=== PATIENT | male | born 1950 | race Caucasian/White ===

== ENCOUNTER 2017-07-24 20:31 | Emergency (ER) | payer OTHER ==
[~2017-07-24] VITALS: Ht 172.7 cm; Wt 93.0 kg
[2017-07-24 20:35] VITALS: BP 130/81
--- NOTE | 2017-07-24 21:38 | ED UPPER/LOWER EXTREMITY COMPL ---
History of Present Illness General Chief Complaint: Upper Extremity Injury Stated Complaint: FALL, RIGHT SHOULDER PAIN PER PT Source: patient Exam Limitations: no limitations Vital Signs & Intake/Output Vital Signs & Intake/Output Vital Signs Date Time Temp Pulse Resp B/P B/P Pulse O2 O2 Flow FiO2 Mean Ox Delivery Rate 07/24 2034 97.9 86 16 130/81 97 Room Air Allergies Uncoded Allergies: PCN (Intermediate, HIVES 07/24/17) Reconcile Medications Hydrocodone/Acetaminophen (Hydrocodon-Acetaminophen 5-325) 5 MG-325 MG TABLET 1-2 TAB PO Q4-6 PRN PRN pain Triage Note: PT STATES THAT HE SLIPPED ON ICE FALLING DOWN ONTO HIS R SIDE. COMPLAINS OF R UPPER ARM PAIN THAT HAS BEEN CONSTANT SINCE HE FELL AND UNABLE TO LIFT HIS ARM, DENIES PAIN IN SHOULDER ON LIGHT PALPATION Triage Nurses Notes Reviewed? yes Onset: Abrupt Duration: day(s): Timing: recent history Severity: moderate, severe Pain/Injury Location: Right: Shoulder. Method of Injury: fall No Modifying Factors: none HPI: 66-year-old male comes into the emergency room for further evaluation of right shoulder pain. Patient slipped and fell outside. Sharp throbbing pain. Difficulty with lifting his right shoulder. He comes in for further evaluation. Denies hitting his head. Denies any injury or pain anywhere else. Denies any other associated symptoms. (Taj Perez) Past History Travel History Traveled to [place] past 21 day No Medical History Any Pertinent Medical History? see below for history Neurological: NONE EENT: NONE Cardiovascular: hypertension, hyperlipidemia Respiratory: NONE Gastrointestinal: NONE Hepatic: NONE Renal: NONE Musculoskeletal: NONE Psychiatric: NONE Endocrine: diabetes Cancer(s): NONE FACTORY LAY OUT ENGINEER/Reproductive: NONE Surgical History Surgical History: non-contributory Psychosocial History What is your primary language Upper Sorbian Tobacco Use: Never used ETOH Use: denies use Illicit Drug Use: denies illicit drug use Family History Hx Contributory? No (Taj Perez) Review of Systems Review of Systems Constitutional: Reports: no symptoms. EENTM: Reports: no symptoms. Respiratory: Reports: no symptoms. Cardiovascular: Reports: no symptoms. Gastrointestinal/Abdominal: Reports: no symptoms. Genitourinary: Reports: no symptoms. Musculoskeletal: Reports: see HPI. Skin: Reports: no symptoms. Neurological/Psychological: Reports: no symptoms. Hematologic/Endocrine: Reports: no symptoms. Immunological: Reports: no symptoms. All Other Systems: Reviewed and Negative (Taj Perez) Physical Exam Physical Exam General Appearance: well developed/nourished, mild distress Head: atraumatic Eyes: Bilateral: PERRL, EOMI. Ears, Nose, Throat: normal pharynx, normal ENT inspection, hearing grossly normal Neck: normal inspection, supple Cardiovascular/Respiratory: no respiratory distress Back: normal inspection Shoulder Right: soft tissue tenderness, limited range of motion, positive empty can test Neurologic/Tendon: normal sensation, normal motor functions, normal tendon functions, no evidence tendon injury Skin: intact, normal color, warm/dry Lymphatic: no anterior cervical cash (Taj Perez) Progress Differential Diagnosis: contusion, dislocation, fracture, sprain, tendon injury Plan of Care: Orders Procedure Date/time Status XRY-SHOULDER COMPLETE-RIGHT 07/24 2041 Active XRY-HUMERUS, RIGHT 07/24 2041 Active Diagnostic Imaging: Viewed by Me: Radiology Read. Discussed w/RAD: Radiology Read. Radiology Impression: PATIENT: NICOLLE MOONEY PRESENT AGE: 66 PATIENT ACCOUNT NO: [id number] : 51 LOCATION: [facility] ORDERING PHYSICIAN: Gm Zuniga DO SERVICE DATE: 07/24/17 EXAM TYPE: RAD - XRY-HUMERUS, RIGHT; XRY-SHOULDER COMPLETE-RIGHT EXAMINATION: XR SHOULDER, RIGHT XR HUMERUS, RIGHT CLINICAL INFORMATION: Right shoulder and humerus pain. Fall. COMPARISON: None TECHNIQUE: 3 views of the right shoulder. 2 views, 4 images of the right humerus. FINDINGS: Right shoulder: No acute fracture or dislocation. The humeral head articulates appropriately with the glenoid. The acromioclavicular joint is intact with mild degenerative changes. The visualized lung is clear. Right humerus: No fracture or cortical disruption. Anatomic alignment at the elbow. Enthesophyte formation at the olecranon which is fragmented. No elbow joint effusion. IMPRESSION: No acute fracture or malalignment. Mild degenerative changes. DICTATED BY: Ki WEIR,Salomón DATE /TIME DICTATED:07/24/172130 SHADOWGRAPH SCALE OPERATOR:[email or web address] DATE/TIME TRANSCRIBED: 07/24/172130 CONFIDENTIAL, DO NOT COPY WITHOUT APPROPRIATE AUTHORIZATION. < Electronically signed in Other Vendor System> SIGNED BY: Ki WEIR, Salomón 07/24/17 5435 (Taj Perez) Departure Departure Disposition: HOME OR SELF CARE Condition: Stable Clinical Impression Primary Impression: Injury of right rotator cuff Referrals: Juan WEIR,Colton Coelho MD,Ilsa (PCP/Family) Additional Instructions: Take ibuprofen for pain. Rest. Ice. Follow-up with orthopedic doctor provided. Return if any other concerns worsening symptoms. Please go over all results of today's visit with your primary care doctor. Contact your primary care doctor to let them know you were here in the emergency room. There may be nonspecific findings which may not be related to your visit today here in the emergency room but may require further evaluation and chronic monitoring by your primary care doctor. If you had a laceration today the chance of foreign body always remains. You should follow-up with your primary care doctor for recheck in 3-5 days for a wound check. If you had an x-ray done there is a chance that a fracture could have been missed on initial read and you should follow-up with your primary care doctor for repeat x-rays if symptoms persist. If your blood pressure was elevated here in the emergency room please have rechecked by [facility] primary care doctor within the next 48. If you were prescribed a narcotic here in the emergency room or any type of controlled substances you're not allowed to drive while taking this medication or operate any type of heavy machinery. Narcotics can make you feel lightheaded dizziness nausea and can cause constipation. You may need to pick up man a stool softener. Thank you for choosing [facility] emergency room. Please return to the emergency room immediately if you have any other concerns worsening of symptoms. Departure Forms: Customer Survey General Discharge Information Prescriptions: Current Visit Scripts Hydrocodone/Acetaminophen (Hydrocodon-Acetaminophen 5-325) 1-2 TAB PO Q4-6 PRN PRN pain #10 TAB (Taj Perez) PA/ASPHALT TAMPING MACHINE OPERATOR Co-Sign Statement Statement: ED Attending supervision documentation- x I saw and evaluated the patient. I have also reviewed all the pertinent lab results and diagnostic results. I agree with the findings and the plan of care as documented in the PA's/ASPHALT TAMPING MACHINE OPERATOR's documentation. [] I have reviewed the ED Record and agree with the PA's/ASPHALT TAMPING MACHINE OPERATOR's documentation. [] Additions or exceptions (if any) to the PAs/ASPHALT TAMPING MACHINE OPERATOR's note and plan are summarized below: [] (Christiano WEIR,Candido) Procedures Splinting Location: right shoulder Manual Alignment Performed: No Splint Applied By: splint applied by me Pre-Proc Neuro Vasc Exam: normal Post-Proc Neuro Vasc Exam: normal (Taj Perez)
[2017-07-24] MEDS ORDERED: HYDROCODON-ACE1 EAC2 PO (21:55)
== END 2017-07-24 21:58 ==
LOC: ERH 20:31
DX: S46.001A Unspecified injury of muscle(s) and tendon(s) of the rotator cuff of right shoulder, initial encounter (principal); W00.0XXA Fall on same level due to ice and snow, initial encounter; Y92.9 Unspecified place or not applicable; Y93.9 Activity, unspecified
CPT/HCPCS: 73030-RT; 73060-RT

== ENCOUNTER 2018-03-09 07:47 | Emergency (ER) | payer OTHER, MEDICARE ==
[~2018-03-09] VITALS: Ht 172.7 cm; Wt 93.0 kg
[~2018-03-09 07:47] MED LIST: HYDROCODON-ACE1 EAC2 PO
[2018-03-09 07:52] VITALS: BP 136/97
--- NOTE | 2018-03-09 09:27 | ED GENERAL ADULT ---
History of Present Illness General Chief Complaint: Laceration Procedure Stated Complaint: LAC TO ARCH OF RIGHT FOOT Source: patient, family Exam Limitations: no limitations Vital Signs & Intake/Output Vital Signs & Intake/Output Vital Signs Date Time Temp Pulse Resp B/P B/P Pulse O2 O2 Flow FiO2 Mean Ox Delivery Rate 03/09 0752 95.8 68 18 136/97 96 Room Air Allergies Coded Allergies: Penicillins (Intermediate, HIVES 03/09/18) Reconcile Medications Hydrocodone/Acetaminophen (Hydrocodon-Acetaminophen 5-325) 5 MG-325 MG TABLET 1-2 TAB PO Q4-6 PRN PRN pain Sulfamethoxazole/Trimethoprim (Bactrim Ds Tablet) 800 MG-160 MG TABLET 1 TAB PO BID Skin Triage Note: LACERATION TO BOTTOM OF R FOOT, STATES HE DROPPED A GLASS COFFE POT AND STEPPED ON GLASS, REPORTS LACERATION IS 2-3 INCHES, DRESSING IN PLACE, NOT VISULAIZED IN TRIAGE. Triage Nurses Notes Reviewed? yes HPI: 67 year old male with PMH DM (last A1C in November 20.), HTN, HLD presenting with right foot laceration after stepping on broken coffee pot this morning around 07 :15. Patient states he accidently dropped his coffee pot in the kitchen and then stepped on the broken glass. He thinks his last tetanus injection was more than 6 years ago. He states his woke up to the sound of glass breaking and immediately applied a pressure dressing and brought him to the ED. Denies any recent illness or sx of chest pain, SOB, abdominal pain. (Mavis Vasquez MD) Past History Travel History Traveled to [place] past 21 day No Medical History Any Pertinent Medical History? see below for history Neurological: NONE EENT: NONE Cardiovascular: hypertension, hyperlipidemia Respiratory: NONE Gastrointestinal: NONE Hepatic: NONE Renal: NONE Musculoskeletal: NONE Psychiatric: NONE Endocrine: diabetes Cancer(s): NONE RIPRAP MAN/Reproductive: NONE Surgical History Surgical History: non-contributory Psychosocial History What is your primary language Honduran Tobacco Use: Never used ETOH Use: occasional use Family History Hx Contributory? No (Mavis Vasquez MD) Review of Systems Review of Systems Constitutional: Reports: no symptoms. EENTM: Reports: no symptoms. Respiratory: Reports: no symptoms. Cardiovascular: Reports: no symptoms. GI: Reports: no symptoms. Genitourinary: Reports: no symptoms. Musculoskeletal: Reports: no symptoms. Skin: Reports: see HPI (laceration to right foot). Neurological/Psychological: Reports: no symptoms. (Mavis Vasquez MD) Physical Exam Physical Exam General Appearance: well developed/nourished, no apparent distress, alert, awake Head: atraumatic, normal appearance Neck: normal inspection Respiratory: normal breath sounds, chest non-tender, no respiratory distress Cardiovascular: regular rate/rhythm Gastrointestinal: normal bowel sounds, soft Extremities: normal capillary refill, no edema Skin: right plantar surface with 5cm u-shaped laceration; surrounding edema and ecchymosis. Motor/sensory intact. Core Measures ACS in differential dx? No CVA/TIA Diagnosis: No Sepsis Present: No Sepsis Focused Exam Completed? No (Mavis Vasquez MD) Progress Differential Diagnoses I considered the following diagnoses in my evaluation of the patient: [ superficial laceration to right plantar surface] Plan of Care: Current Medications Sig/Liss Start time Last Medication Dose Stop Time Status Admin Lidocaine/Epinephrine 20 ML ONCE ONE 03/09 930 UNVr 03/09 931 Initial ED EKG: none Comments: Laceration repair: Right foot plantar surface 5-6cm U-shaped Sterile prep and drape. Would was anestatized with 1%lidocaine with epi. The wound was then irrigated with copious amounts of betadine; normal saline; and scrubbed with surgical brush. No foreign bodies found. Wound edges were approximated and surture with 4-0 nylon interrupted suture. 10 sutures were placed. Patient tolerated procedure well. Wound was dressed with dry 4x4 gauze and ELSA wrap. (Mavis Vasquez MD) Departure Departure Time of Disposition: 1030 Disposition: HOME OR SELF CARE Condition: Stable Clinical Impression Primary Impression: Laceration of foot Referrals: Ilsa Coelho MD (PCP/Family) Additional Instructions: Please follow up with your PCP in one week for evaluation of wound. Please return to the ED or see your PCP immediately if you develop fever, foot redness, swelling, numbness or tingling, drainage, or increased pain. Take your prescription as prescribed and complete the full course. Elevate right foot while at rest to relieve swelling Keep wound clean and dry for one week. After one week it is okay to shower and allow soap and water to run over the exposed wound. Resume activity as tolerated. Avoid soaking your wound in swimming pools or hot tubs. Do not allow wound to be exposed to dirty surfaces. Please monitor your diet and check your blood sugar to maintain adequate glucose control. Glucose control is important for wound healing. Departure Forms: Customer Survey General Discharge Information Prescriptions: Current Visit Scripts Sulfamethoxazole/Trimethoprim (Bactrim Ds Tablet) 1 TAB PO BID #14 TAB (Mavis Vasquez MD) PA/BEATER ROOM HELPER Co-Sign Statement Statement: ED Attending supervision documentation- x I saw and evaluated the patient. I have also reviewed all the pertinent lab results and diagnostic results. I agree with the findings and the plan of care as documented in the PA's/BEATER ROOM HELPER's documentation. [] I have reviewed the ED Record and agree with the PA's/BEATER ROOM HELPER's documentation. [] Additions or exceptions (if any) to the PAs/BEATER ROOM HELPER's note and plan are summarized below: [] (Luisito WEIR,Vidal) Critical Care Note Critical Care Note Critical Care Time: non-applicable (Mavis Vasquez MD)
[2018-03-09] MEDS ORDERED: BACTRIM DS TAB1 EACH PO (10:34)
== END 2018-03-09 11:10 ==
LOC: ERH 07:47
DX: S91.311A Laceration without foreign body, right foot, initial encounter (principal); W25.XXXA Contact with sharp glass, initial encounter; Y92.000 Kitchen of unspecified non-institutional (private) residence as the place of occurrence of the external cause; Y93.89 Activity, other specified; I10 Essential (primary) hypertension; E78.5 Hyperlipidemia, unspecified; E11.9 Type 2 diabetes mellitus without complications
CPT/HCPCS: 90471; 90714